=== PATIENT | female | born 1955 | race Caucasian/White ===

== ENCOUNTER → 2016-08-20 | Outpatient (CLI) | payer BC ==
[~2016-08-20] MED LIST: /RANI15TA PO; AMIT8CAP PO; ASPI81TA7 PO; CIPR500T89 PO; CO Q100C10 PO; ESTR2TAB PO; FERR325T3 PO; FISH1000 PO; FLAG500T PO; HYDR12.55 PO; HYDR25TAB PO; LISI-538 PO; LISI5TAB PO; LIVA4TAB PO; MELA5CAP3 PO; MULTCAP PO; POTA75TA PO; PRENTAB29 PO; VESI5TAB PO; VITA100T86 PO; VITA500C24 PO; VITAD1000T PO; VITATAB11 PO
[2016-08-20 11:19] LABS: ALBUMIN 3.6 GM/DL (3.2-5.2); ALKALINE PHOSPHATASE 51 U/L (45-117); ALT/SGPT 23 U/L (12-78); ANION GAP 9 MEQ/L (8-16); AST/SGOT 24 U/L (15-37); BILIRUBIN,TOTAL 0.4 MG/DL (0.2-1.0); BLOOD UREA NITROGEN 19 MG/DL (7-18); CALCIUM LEVEL 9.1 MG/DL (8.5-10.1); CARBON DIOXIDE LEVEL 30 MEQ/L (21-32); CHLORIDE LEVEL 102 MEQ/L (98-107); CHOLESTEROL LEVEL 274 MG/DL (<200); CREATININE FOR GFR 0.66 MG/DL (0.55-1.02); GLOMERULAR FILTRATION RATE > 60.0 (>51); GLUCOSE, FASTING 98 MG/DL (70-105); POTASSIUM SERUM 4.4 MEQ/L (3.5-5.1); SODIUM LEVEL 141 MEQ/L (136-145); TOTAL PROTEIN 6.6 GM/DL (6.4-8.2); TRIGLYCERIDES LEVEL 382 MG/DL (<150)
== END ==
LOC: M LRY 07:59
PROVIDERS: ATTEND Physician Assistant
DX: I10 Essential (primary) hypertension (principal); E78.5 Hyperlipidemia, unspecified

== ENCOUNTER → 2016-12-27 | Outpatient (CLI) | payer BC ==
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
== END ==
LOC: M PAIN 11:20
PROVIDERS: ATTEND Nurse Practitioner Family
DX: G89.29 Other chronic pain (principal); M79.1 Myalgia; M12.88 Other specific arthropathies, not elsewhere classified, other specified site; M50.20 Other cervical disc displacement, unspecified cervical region; I10 Essential (primary) hypertension; E78.00 Pure hypercholesterolemia, unspecified; K21.9 Gastro-esophageal reflux disease without esophagitis; J45.990 Exercise induced bronchospasm; Z88.8 Allergy status to other drugs, medicaments and biological substances; Z79.82 Long term (current) use of aspirin; Z79.899 Other long term (current) drug therapy; Z87.891 Personal history of nicotine dependence

== ENCOUNTER → 2017-01-06 | Outpatient (CLI) | payer BC ==
[~2017-01-06] MED LIST changes: +BUPIVACAINE HCL 0.25% 10 ML VIAL As Ordered ONE; +BUPIVACAINE HCL 0.25% 30 ML VIAL As Ordered ONE; +TRIAMCINOLONE ACETONIDE SUSP 40 MG/ML VIAL (J3301) As Ordered ONE; +diazePAM 5 MG TAB As Ordered ONE; +oxyCODONE 5MG TAB As Ordered ONE
--- NOTE | 2017-01-12 23:20 | ECWPNPC ---
PATIENT NAME: JAMIE FARR : 1955 GENDER: FEMALE VISIT DATE: 01/06/2017 DISCHARGE DATE: 01/06/171529 VISIT LOCKED DATE TIME: PHYSICIAN: PALAK MONTIEL RESOURCE: PALAK MONTIEL REASON FOR APPOINTMENT 1. TPI HISTORY OF PRESENT ILLNESS HISTORY OF PRESENT ILLNESS: PAIN THE PATIENT DESCRIBES THE PAIN... FALL RISK SCREENING: SCREENING :NO FALLS IN THE PAST YEAR CURRENT MEDICATIONS TAKING ANUSOL-HC 2.5 % CREAM 1 APPLICATION TO AFFECTED AREA RECTAL NEEDED TAKING VITAMIN B COMPLEX OTC TABLET 1 TAB(S) P.O. ONCE A DAY, NOTES: 01-06-17529 TAKING MELATONIN 300MCG TABLET 1 TABLET ORALLY ONCE A DAY PRN, NOTES: NONE RECENT TAKING ASPIRIN 81 MG TABLET CHEWABLE 1 TABLET ORALLY ONCE A DAY, NOTES: 01-06-17529 TAKING HYDROCHLOROTHIAZIDE 25 25 MG TABLET 1 TAB ORAL ONCE A DAY, NOTES: 01-06-17529 TAKING LISINOPRIL 20 MG TABLET 1 TABLET ORALLY TWICE A DAY, NOTES: 01-06-17529 TAKING RANITIDINE HCL 150 MG TABLET 1 TABLET ORALLY TWICE A DAY, NOTES: 01-06-17529 TAKING VITAMIN E 400 UNIT CAPSULE 1 ORALLY ONCE A DAY, NOTES: 01-06-17529 TAKING MAGNESIUM 100 MG TABLET 1 TAB(S) P.O. ONCE A DAY, NOTES: 01-05-172099 TAKING VITAMIN D 2000 UNIT TABLET 1 TAB(S) P.O. ONCE A DAY, NOTES: 01-05-172099 TAKING MULTIVITAMIN OTC TABLET 1 TAB(S) P.O. ONCE A DAY, NOTES: 01-06-17529 TAKING ESTRADIOL 1 MG TABLET 1 TABLET ORALLY MON., FRI.,FRI, NOTES: 01-05-17 08 TAKING PRAVASTATIN SODIUM 20 MG TABLET 1 TABLET ORALLY ONCE A DAY, NOTES: 01-05-172099 NOT-TAKING LINZESS 145 MCG CAPSULE 1 CAPSULE ORALLY ONCE A DAY PRN NOT-TAKING COQ-10 200 MG CAPSULE 1 CAPSULE WITH A MEAL ORALLY ONCE A DAY NOT-TAKING FISH OIL 1000 MG CAPSULE CAPSULE ORALLY TWICE A DAY NOT-TAKING AMITIZA 8 MCG CAPSULE 1 CAPSULE ORALLY ONCE A DAY NOT-TAKING CRESTOR 10 MG TABLET 1 TAB(S) P.O. ONCE A DAY DISCONTINUED LIVALO 2 MG TABLET 1 TABLET ORALLY ., AND FRI. MEDICATION LIST REVIEWED AND RECONCILED WITH THE PATIENT PAST MEDICAL HISTORY HIGH BLOOD PRESSURE HIGH CHOLESTEROL ACID REFLUX ASTHMA, EXCERCISE INDUCED KIDNEY STONES, HX OF UPPER GI BLEED 06/15 RECTAL BLEEDING 12/14 INTERNAL /HEMORRHOIDS LIGATED HERNIATED DISC DR EUGENIA REA 2013 (L5 S 1) STRESS INCONTINENCE WITH RUNNING SNEEZING ALLERGIES BACTRIM: RASH: ALLERGY STADOL: HALLUCINATION: SIDE EFFECTS REVIEW OF SYSTEMS CONSTITUTIONAL: ANY CHANGE IN YOUR MEDICAL CONDITION? NO . CHILLS NO . FEVER NO . INFECTION: DO YOU HAVE NEW INFECTIONS? NO . DO YOU HAVE HISTORY OF MRSA? NO . MUSCULOSKELETAL: ANY NEW PATTERNS OF PAIN OR NUMBNESS? NO . GASTROENTEROLOGY: ANY NEW CHANGE IN BOWEL CONTROL? NO . GENITOURINARY: ANY NEW CHANGE IN BLADDER CONTROL? NO . IS THERE A CHANCE YOU COULD BE ? NO . HEMATOLOGY/LYMPH: DO YOU TAKE ANY BLOOD THINNERS? (FOR EXAMPLE- COUMADIN, PLAVIX, AGGRENOX, PLATEL, PRADAXA, OR XARELTO) NO . WHEN WAS YOUR LAST DOSE? DATE: TIME: . NEUROLOGY: HAVE YOU FALLEN IN THE PAST 6 MONTHS? NO . ANY NEW EXTREMITY NUMBNESS OR WEAKNESS? NO . CARDIOLOGY: DO YOU HAVE A PACEMAKER OR DEFIBRILLATOR? NO . RESPIRATORY: HAVE YOU BEEN SICK IN THE PAST WEEK? NO . FEVER NO . FLU LIKE SYMPTOMS? NO . COUGH NO . INTEGUMENTARY: DO YOU HAVE ANY RASHES OR OPEN SORES? NO . ALLERGIC/IMMUNO: ARE YOU ALLERGIC TO SHELLFISH OR IV DYE? NO . ANY NEW ALLERGIES? NO . PSYCHIATRIC: DO YOU HAVE THOUGHTS OF HURTING YOURSELF OR SOMEONE ELSE? NO . ARE YOU ABUSED, NEGLECTED, OR IN AN UNSAFE ENVIRONMENT? NO . ENDOCRINOLOGY: ARE YOU DIABETIC? NO . OTHER: DO YOU NEED ANY PRESCRIPTIONS? NO . IF YES, PLEASE LIST: ____ . ANY NEW PROBLEMS WITH YOUR MEDICATIONS? NO . WHEN DID YOU LAST EAT? 0700 . WHEN DID YOU LAST DRINK? 1100 . WHAT DID YOU LAST DRINK? WATER . NAME OF PERSON DRIVING YOU HOME? LAKESHA FARR . DO YOU HAVE ANY OTHER QUESTIONS OR CONCERNS NO . REVIEWED BY: PROVIDER: . VITAL SIGNS WT 135.0 LBS, HT 61 IN, BMI 25.51 INDEX, BP 122/76 MM HG, HR 70 /MIN, RR 16 /MIN, TEMP 98.9 F, OXYGEN SAT % 98%, NA INITIALS TL 1300, REVIEWED BY: LS. ASSESSMENTS MYALGIA - M79.1 (PRIMARY) PROCEDURES PN TRIGGER POINT INJECTION WITH STEROIDS PRE PROCEDURE DIAGNOSIS 1. MYALGIA 2. PAIN AT RIGHT NECK AREA AND RIGHT SHOULDER AREA POST PROCEDURE DIAGNOSIS 1. MYALGIA 2. PAIN AT RIGHT NECK AREA AND RIGHT SHOULDER AREA PROCEDURE TRIGGER POINT INJECTION AT RIGHT NECK AREA AND RIGHT SHOULDER AREA SURGEON DR. PALAK MONTIEL ALUMINUM FABRICATION SUPERVISOR NONE ANESTHESIA LOCAL PRE PROCEDURE NOTE THE PATIENT HAS A HISTORY OF CHRONIC PAIN AT THE RIGHT NECK AREA AND RIGHT SHOULDER AREA. I EVALUATE THE PATIENT AND REVIEWED THE CHART. THERE IS EVIDENCE OF BANDS OF TISSUE WITH RESTRICTION OF MOVEMENT AND PRESENCE OF TRIGGER POINT AT THE AFFECTED AREA. I WENT OVER THE RISKS, ALTERNATIVES, AND BENEFITS ASSOCIATED WITH THIS PROCEDURE. THE PATIENT WOULD LIKE TO PROCEED AND GIVE CONSENT TO PERFORMED THE PROCEDURE. THE PATIENT DENIES UNEXPLAINABLE WEIGHT LOSS, FEVER, CHILLS, OR NEW CHANGES IN URINARY OR BOWEL CONTROL DESCRIPTION OF PROCEDURE THE PATIENT WAS BROUGHT TO THE PROCEDURE ROOM AND PLACED IN THE SITTING POSITION. THE AREA WAS CLEANED WITH ALCOHOL. THE PROCEDURE WAS DONE USING ASEPTIC STERILE TECHNIQUE. I CHECKED LATERALITY AND THE LEVEL WHERE THE PROCEDURE WAS GOING TO BE PERFORMED WITH THE PATIENT AND THE SUPPORTING STAFF AT THE MOMENT OF THE TIME OUT IN THE PROCEDURE ROOM. USING A 25-GAUGE NEEDLE, TRIGGER POINTS WERE INJECTED AT THE RIGHT NECK AREA AND RIGHT SHOULDER AREA WITH A TOTAL OF 40 ML OF BUPIVACAINE 0.25% AND KENALOG 40 MG. THERE WAS NO EVIDENCE OF BLOOD, PARESTHESIA OR CEREBROSPINAL FLUID DURING THE PROCEDURE. THE PATIENT WAS SENT TO THE RECOVERY ROOM. THE PATIENT WAS MOVING THE EXTREMITIES AND DOING WELL. THERE WAS NO COMPLICATION DURING THE PROCEDURE POST PROCEDURE NOTE THE PATIENT WILL BE SEEN IN A FOLLOW UP IN THE NEXT FEW WEEKS. INSTRUCTIONS WERE GIVEN, QUESTIONS WERE ANSWERED, AND THE PATIENT EXPRESSED UNDERSTANDING AND AGREES WITH THE PLAN. I, JOSÉ MARTINEZ, DOCUMENTED THE ABOVE INFORMATION ACTING A SCRIBE FOR DR. MONTIEL. I HAVE REVIEWED THE ABOVE DOCUMENT, WRITTEN BY JOSÉ MARTINEZ SCRIBFrancoise AND I VERIFY THAT IT IS ACCURATE PROCEDURE CODES 16818 INJ TRIGGER POINT 08/05 [facility] DISPOSITION & COMMUNICATION FOLLOW UP 3 WEEKS ELECTRONICALLY SIGNED BY PALAK MONTIEL MD ON 01/12/2017 AT 07:36 PM EDT DISCLAIMER : THIS IS A VISIT SUMMARY EXTRACTED FROM THE [employer] CHART. IT IS NOT A COPY OF THE [employer] PROGRESS NOTE. TA
== END ==
LOC: M PAIN 12:40
PROVIDERS: ATTEND Anesthesiology
DX: G89.29 Other chronic pain (principal); M79.1 Myalgia; M54.2 Cervicalgia; M25.511 Pain in right shoulder; I10 Essential (primary) hypertension; E78.00 Pure hypercholesterolemia, unspecified; K21.9 Gastro-esophageal reflux disease without esophagitis; J45.990 Exercise induced bronchospasm; Z88.1 Allergy status to other antibiotic agents; Z88.8 Allergy status to other drugs, medicaments and biological substances; Z79.82 Long term (current) use of aspirin; Z79.899 Other long term (current) drug therapy
CPT/HCPCS: 20552; J3301

== ENCOUNTER → 2017-01-31 | Outpatient (CLI) | payer BC ==
[~2017-01-31] MED LIST changes: -BUPIVACAINE HCL 0.25% 10 ML VIAL As Ordered ONE; -BUPIVACAINE HCL 0.25% 30 ML VIAL As Ordered ONE; -TRIAMCINOLONE ACETONIDE SUSP 40 MG/ML VIAL (J3301) As Ordered ONE; -diazePAM 5 MG TAB As Ordered ONE; -oxyCODONE 5MG TAB As Ordered ONE
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
== END ==
LOC: M PAIN 14:20
PROVIDERS: ATTEND Nurse Practitioner Family
DX: G89.29 Other chronic pain (principal); M12.88 Other specific arthropathies, not elsewhere classified, other specified site; M50.20 Other cervical disc displacement, unspecified cervical region; M79.1 Myalgia; I10 Essential (primary) hypertension; E78.00 Pure hypercholesterolemia, unspecified; K21.9 Gastro-esophageal reflux disease without esophagitis; J45.990 Exercise induced bronchospasm; Z88.1 Allergy status to other antibiotic agents; Z88.8 Allergy status to other drugs, medicaments and biological substances; Z79.82 Long term (current) use of aspirin; Z79.899 Other long term (current) drug therapy; Z87.891 Personal history of nicotine dependence

== ENCOUNTER → 2017-03-21 | Outpatient (CLI) | payer BC ==
[2017-03-21 11:50] LABS: BASO % 0.4 % (0.0-1.0); EOS # 0.4 K/mm3 (0.0-0.50); EOS % 5.4 % (0.0-3.0); LARGE UNSTAINED CELL # 0.1 K/mm3 (0.0-0.4); LARGE UNSTAINED CELL % 1.8 % (0.0-4.0); LYMPH # 4.5 K/mm3 (1.5-4.5); MEAN CORPUSCULAR HEMOGLOBIN 32.9 pg (27.0-33.0); MEAN CORPUSCULAR HGB CONC 35.8 g/dl (32.0-36.5); MEAN CORPUSCULAR VOLUME 91.9 fl (80.0-96.0); MONO # 0.4 K/mm3 (0.0-0.8); MONO % 5.2 % (0.0-5.0); NEUTROPHILS # 2.7 K/mm3 (1.8-7.7); NEUTROPHILS % 33.2 % (36.0-66.0); PLATELET COUNT, AUTOMATED 329 k/mm3 (150-450); RED CELL DISTRIBUTION WIDTH 12.6 % (11.5-14.5); WHITE BLOOD COUNT 8.1 K/mm3 (4.0-10.0)
[2017-03-21 11:57] LABS: ALBUMIN 3.6 GM/DL (3.2-5.2); ALKALINE PHOSPHATASE 74 U/L (45-117); ANION GAP 7 MEQ/L (8-16); BILIRUBIN,TOTAL 0.4 MG/DL (0.2-1.0); BLOOD UREA NITROGEN 16 MG/DL (7-18); CALCIUM LEVEL 8.9 MG/DL (8.8-10.2); CARBON DIOXIDE LEVEL 31 MEQ/L (21-32); CHLORIDE LEVEL 104 MEQ/L (98-107); CHOLESTEROL LEVEL 294 MG/DL (<200); CREATININE FOR GFR 0.77 MG/DL (0.55-1.02); GLOMERULAR FILTRATION RATE > 60.0 (>45); POTASSIUM SERUM 4.6 MEQ/L (3.5-5.1); SODIUM LEVEL 142 MEQ/L (136-145)
[2017-03-21 12:13] LABS: TRIGLYCERIDES LEVEL 1751 MG/DL (<150)
[2017-03-21 12:37] LABS: ALT/SGPT 39 U/L (12-78); AST/SGOT 29 U/L (15-37); GLUCOSE, FASTING 114 MG/DL (80-110); TOTAL PROTEIN 6.6 GM/DL (6.4-8.2)
== END ==
LOC: M LRY 08:12
PROVIDERS: ATTEND Physician Assistant
DX: D64.9 Anemia, unspecified (principal); E78.5 Hyperlipidemia, unspecified; E55.9 Vitamin D deficiency, unspecified; R31.9 Hematuria, unspecified; R00.2 Palpitations; I10 Essential (primary) hypertension

== ENCOUNTER → 2017-03-31 | Outpatient (CLI) | payer BC ==
--- NOTE | 2017-03-31 14:36 | REPMRS ---
Patient History The patient states she had a clinical breast exam in Patient is postmenopausal. No known family history of cancer. Benign stereotatic breast biopsy of the right breast, 2010. Took unspecified hormones for 6 years. Digital Woman Screen Mammo: March 31, 2017 - Exam #: [id number] Bilateral CC and MLO view(s) were taken. Technologist: Sadaf Smith, Technologist Prior study comparison: January 26, 2016, digital woman screen mammo performed at [facility]. January 16, 2015, digital woman screen mammo performed at [facility]. January 14, 2014, digital woman screen mammo performed at [facility]. FINDINGS: There are scattered fibroglandular densities. There has been no change in the appearance of the mammogram from the prior studies. There is a mild amount of scattered fibroglandular density which is fairly symmetric. There is no interval development of dominant mass, architectural distortion, or clustered microcalcification suggestive of malignancy. ASSESSMENT: BI-RADS/ACR category 1 mammogram. Negative. Recommendation Routine screening mammogram in 1 year (for women over age 40). This mammogram was interpreted with the aid of an FDA-approved computer-aided dectection system. Electronically Signed By: Parrish Poole MD 03/31/17 [id number]
== END ==
LOC: M WHC 12:58
PROVIDERS: ATTEND Nurse Practitioner Family
DX: Z12.31 Encounter for screening mammogram for malignant neoplasm of breast (principal)

== ENCOUNTER → 2017-04-28 | Outpatient (CLI) | payer BC ==
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
== END ==
LOC: M PAIN 11:30
PROVIDERS: ATTEND Nurse Practitioner Family
DX: G89.29 Other chronic pain (principal); M12.88 Other specific arthropathies, not elsewhere classified, other specified site; M50.20 Other cervical disc displacement, unspecified cervical region; M79.1 Myalgia; I10 Essential (primary) hypertension; E78.00 Pure hypercholesterolemia, unspecified; K21.9 Gastro-esophageal reflux disease without esophagitis; F32.9 Major depressive disorder, single episode, unspecified; Z87.891 Personal history of nicotine dependence; Z88.1 Allergy status to other antibiotic agents; Z88.8 Allergy status to other drugs, medicaments and biological substances; Z79.82 Long term (current) use of aspirin; Z79.899 Other long term (current) drug therapy

== ENCOUNTER → 2017-05-07 | Outpatient (CLI) | payer BC ==
[~2017-05-07] MED LIST changes: +BUPIVACAINE HCL 0.25% 10 ML VIAL As Ordered ONE; +BUPIVACAINE HCL 0.25% 30 ML VIAL As Ordered ONE; +TRIAMCINOLONE ACETONIDE SUSP 40 MG/ML VIAL (J3301) As Ordered ONE; +diazePAM 5 MG TAB As Ordered ONE; +oxyCODONE 5MG TAB As Ordered ONE
--- NOTE | 2017-05-13 00:04 | ECWPNPC ---
PATIENT NAME: JAMIE FARR : 1955 GENDER: FEMALE VISIT DATE: 05/07/2017 DISCHARGE DATE: 05/07/17 1633 VISIT LOCKED DATE TIME: PHYSICIAN: PALAK MONTIEL RESOURCE: PALAK MONTIEL REASON FOR APPOINTMENT 1. NECK/SHOULDERS HISTORY OF PRESENT ILLNESS HISTORY OF PRESENT ILLNESS: PAIN THE PATIENT DESCRIBES THE PAIN... FALL RISK SCREENING: SCREENING :NO FALLS IN THE PAST YEAR CURRENT MEDICATIONS TAKING ANUSOL-HC 2.5 % CREAM 1 APPLICATION TO AFFECTED AREA RECTAL NEEDED, NOTES: AWHILE TAKING VITAMIN B COMPLEX OTC TABLET 1 TAB(S) P.O. ONCE A DAY, NOTES: 52905/07/17 TAKING MELATONIN 300MCG TABLET 1 TABLET ORALLY ONCE A DAY PRN, NOTES: AWHILE TAKING ASPIRIN 81 MG TABLET CHEWABLE 1 TABLET ORALLY ONCE A DAY, NOTES: 52905/07/17 TAKING HYDROCHLOROTHIAZIDE 25 25 MG TABLET 1 TAB ORAL ONCE A DAY, NOTES: 52905/07/17 TAKING LISINOPRIL 20 MG TABLET 1 TABLET ORALLY TWICE A DAY, NOTES: 52905/07/17 TAKING RANITIDINE HCL 150 MG TABLET 1 TABLET ORALLY TWICE A DAY, NOTES: 52905/07/17 TAKING VITAMIN E 400 UNIT CAPSULE 1 ORALLY ONCE A DAY, NOTES: 52905/07/17 TAKING MAGNESIUM 100 MG TABLET 1 TAB(S) P.O. ONCE A DAY, NOTES: 9PM 05/06/17 TAKING VITAMIN D 2000 UNIT TABLET 1 TAB(S) P.O. ONCE A DAY, NOTES: 52905/07/17 TAKING MULTIVITAMIN OTC TABLET 1 TAB(S) P.O. ONCE A DAY, NOTES: 52905/07/17 TAKING CRESTOR 10 MG TABLET 1 TAB(S) P.O. ONCE A DAY, NOTES: 9PM 05/06 TAKING LEXAPRO 5 MG TABLET 1 TAB ORALLY ONCE A DAY, NOTES: 52905/07/17 MEDICATION LIST REVIEWED AND RECONCILED WITH THE PATIENT PAST MEDICAL HISTORY HIGH BLOOD PRESSURE HIGH CHOLESTEROL ACID REFLUX ASTHMA, EXCERCISE INDUCED KIDNEY STONES, HX OF UPPER GI BLEED 06/15 RECTAL BLEEDING 12/14 INTERNAL /HEMORRHOIDS LIGATED HERNIATED DISC DR BELLO SCIATICA 2013 (L5 S 1) STRESS INCONTINENCE WITH RUNNING SNEEZING DEPRESION ALLERGIES BACTRIM: RASH: ALLERGY STADOL: HALLUCINATION: SIDE EFFECTS SURGICAL HISTORY TONSILLECTOMY AMBER CARPAL TUNNEL RELEASE 2009 LAVH AND BSO FOR BENIGN CYSTADENOMA FIBROID UTERUS AND ENDOMETRIOSIS 2009 HEMORRHOIDECTOMY X2 2010 BREAST BIOPSY, NEG, EWBC 12/[address] MENDOZA 2013 HOSPITALIZATION/MAJOR DIAGNOSTIC PROCEDURE UPPER GI BLEED 06/15 REVIEW OF SYSTEMS REVIEWED BY: PROVIDER: . CONSTITUTIONAL: ANY CHANGE IN YOUR MEDICAL CONDITION? NO . CHILLS NO . FEVER NO . INFECTION: DO YOU HAVE NEW INFECTIONS? NO . DO YOU HAVE HISTORY OF MRSA? NO . MUSCULOSKELETAL: ANY NEW PATTERNS OF PAIN OR NUMBNESS? NO . GASTROENTEROLOGY: ANY NEW CHANGE IN BOWEL CONTROL? NO . GENITOURINARY: ANY NEW CHANGE IN BLADDER CONTROL? NO . IS THERE A CHANCE YOU COULD BE ? NO . HEMATOLOGY/LYMPH: DO YOU TAKE ANY BLOOD THINNERS? (FOR EXAMPLE- COUMADIN, PLAVIX, AGGRENOX, PLATEL, PRADAXA, OR XARELTO) NO . WHEN WAS YOUR LAST DOSE? DATE: TIME: . NEUROLOGY: HAVE YOU FALLEN IN THE PAST 6 MONTHS? NO . ANY NEW EXTREMITY NUMBNESS OR WEAKNESS? NO . CARDIOLOGY: DO YOU HAVE A PACEMAKER OR DEFIBRILLATOR? NO . RESPIRATORY: HAVE YOU BEEN SICK IN THE PAST WEEK? NO . FEVER NO . FLU LIKE SYMPTOMS? NO . COUGH NO . INTEGUMENTARY: DO YOU HAVE ANY RASHES OR OPEN SORES? NO . ALLERGIC/IMMUNO: ARE YOU ALLERGIC TO SHELLFISH OR IV DYE? NO . ANY NEW ALLERGIES? NO . PSYCHIATRIC: DO YOU HAVE THOUGHTS OF HURTING YOURSELF OR SOMEONE ELSE? NO . ARE YOU ABUSED, NEGLECTED, OR IN AN UNSAFE ENVIRONMENT? NO . ENDOCRINOLOGY: ARE YOU DIABETIC? NO . OTHER: DO YOU NEED ANY PRESCRIPTIONS? NO . IF YES, PLEASE LIST: ____ . ANY NEW PROBLEMS WITH YOUR MEDICATIONS? NO . WHEN DID YOU LAST EAT? 0800 AM . WHEN DID YOU LAST DRINK? 12PM . WHAT DID YOU LAST DRINK? WATER . NAME OF PERSON DRIVING YOU HOME? LAKESHA . DO YOU HAVE ANY OTHER QUESTIONS OR CONCERNS NO . VITAL SIGNS WT 133.8 LBS, HT 61 IN, BMI 25.28 INDEX, BP 130/76 MM HG, HR 66 /MIN, RR 16 /MIN, TEMP 98.7 F, OXYGEN SAT % 100%, NA INITIALS SC 14:14, REVIEWED BY: NL. ASSESSMENTS MYALGIA - M79.1 (PRIMARY) PROCEDURES PN TRIGGER POINT INJECTION WITH STEROIDS PRE PROCEDURE DIAGNOSIS 1. MYALGIA 2. PAIN AT RIGHT NECK AREA, RIGHT SHOULDER AREA, AND RIGHT THORACIC AREA POST PROCEDURE DIAGNOSIS 1. MYALGIA 2. PAIN AT RIGHT NECK AREA, RIGHT SHOULDER AREA, AND RIGHT THORACIC AREA PROCEDURE TRIGGER POINT INJECTION AT RIGHT NECK AREA, RIGHT SHOULDER AREA, AND RIGHT THORACIC AREA SURGEON DR. PALAK MONTIEL CHROME WORKER NONE ANESTHESIA LOCAL PRE PROCEDURE NOTE THE PATIENT HAS A HISTORY OF CHRONIC PAIN AT THE RIGHT NECK AREA, RIGHT SHOULDER AREA, AND RIGHT THORACIC AREA. I EVALUATE THE PATIENT AND REVIEWED THE CHART. THERE IS EVIDENCE OF BANDS OF TISSUE WITH RESTRICTION OF MOVEMENT AND PRESENCE OF TRIGGER POINT AT THE AFFECTED AREA. I WENT OVER THE RISKS, ALTERNATIVES, AND BENEFITS ASSOCIATED WITH THIS PROCEDURE. THE PATIENT WOULD LIKE TO PROCEED AND GIVE CONSENT TO PERFORMED THE PROCEDURE. THE PATIENT DENIES UNEXPLAINABLE WEIGHT LOSS, FEVER, CHILLS, OR NEW CHANGES IN URINARY OR BOWEL CONTROL DESCRIPTION OF PROCEDURE THE PATIENT WAS BROUGHT TO THE PROCEDURE ROOM AND PLACED IN THE SITTING POSITION. THE AREA WAS CLEANED WITH ALCOHOL. THE PROCEDURE WAS DONE USING ASEPTIC STERILE TECHNIQUE. I CHECKED LATERALITY AND THE LEVEL WHERE THE PROCEDURE WAS GOING TO BE PERFORMED WITH THE PATIENT AND THE SUPPORTING STAFF AT THE MOMENT OF THE TIME OUT IN THE PROCEDURE ROOM. USING A 25-GAUGE NEEDLE, TRIGGER POINTS WERE INJECTED AT THE RIGHT NECK AREA, RIGHT SHOULDER AREA, AND RIGHT THORACIC AREA WITH A TOTAL OF 40 ML OF BUPIVACAINE 0.25% AND KENALOG 40 MG. THERE WAS NO EVIDENCE OF BLOOD, PARESTHESIA OR CEREBROSPINAL FLUID DURING THE PROCEDURE. THE PATIENT WAS SENT TO THE RECOVERY ROOM. THE PATIENT WAS MOVING THE EXTREMITIES AND DOING WELL. THERE WAS NO COMPLICATION DURING THE PROCEDURE POST PROCEDURE NOTE THE PATIENT WILL BE SEEN IN A FOLLOW UP IN THE NEXT FEW WEEKS. INSTRUCTIONS WERE GIVEN, QUESTIONS WERE ANSWERED, AND THE PATIENT EXPRESSED UNDERSTANDING AND AGREES WITH THE PLAN. I, FALLON CASH, DOCUMENTED THE ABOVE INFORMATION ACTING A SCRIBE FOR DR. MONTIEL. I HAVE REVIEWED THE ABOVE DOCUMENT, WRITTEN BY FALLON HONG AND I VERIFY THAT IT IS ACCURATE PROCEDURE CODES 82274 INJECT TRIGGER POINTS 3/> DISPOSITION & COMMUNICATION FOLLOW UP 3 WEEKS ELECTRONICALLY SIGNED BY PALAK MONTIEL MD ON 05/12/2017 AT 03:16 PM EDT DISCLAIMER : THIS IS A VISIT SUMMARY EXTRACTED FROM THE [employer] CHART. IT IS NOT A COPY OF THE [employer] PROGRESS NOTE. TA
== END ==
LOC: M PAIN 14:45
PROVIDERS: ATTEND Anesthesiology
DX: G89.29 Other chronic pain (principal); M25.511 Pain in right shoulder; M54.2 Cervicalgia; M54.6 Pain in thoracic spine; M79.1 Myalgia; I10 Essential (primary) hypertension; E78.00 Pure hypercholesterolemia, unspecified; K21.9 Gastro-esophageal reflux disease without esophagitis; F32.9 Major depressive disorder, single episode, unspecified; Z79.52 Long term (current) use of systemic steroids; Z79.899 Other long term (current) drug therapy
CPT/HCPCS: 20553; J3301

== ENCOUNTER → 2017-06-20 | Outpatient (CLI) | payer BC ==
[~2017-06-20] MED LIST changes: -BUPIVACAINE HCL 0.25% 10 ML VIAL As Ordered ONE; -BUPIVACAINE HCL 0.25% 30 ML VIAL As Ordered ONE; -TRIAMCINOLONE ACETONIDE SUSP 40 MG/ML VIAL (J3301) As Ordered ONE; -diazePAM 5 MG TAB As Ordered ONE; -oxyCODONE 5MG TAB As Ordered ONE
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
== END ==
LOC: M PAIN 13:15
PROVIDERS: ATTEND Nurse Practitioner Family
DX: G89.29 Other chronic pain (principal); M79.1 Myalgia; M12.88 Other specific arthropathies, not elsewhere classified, other specified site; M50.20 Other cervical disc displacement, unspecified cervical region; E78.00 Pure hypercholesterolemia, unspecified; K21.9 Gastro-esophageal reflux disease without esophagitis; J45.909 Unspecified asthma, uncomplicated; Z87.442 Personal history of urinary calculi; F32.9 Major depressive disorder, single episode, unspecified; Z79.82 Long term (current) use of aspirin; Z79.899 Other long term (current) drug therapy; Z87.891 Personal history of nicotine dependence; Z88.1 Allergy status to other antibiotic agents; Z88.8 Allergy status to other drugs, medicaments and biological substances

== ENCOUNTER → 2017-07-16 | Outpatient (CLI) | payer BC ==
[~2017-07-16] MED LIST changes: +BUPIVACAINE HCL 0.25% 10 ML VIAL As Ordered ONE; +BUPIVACAINE HCL 0.25% 30 ML VIAL As Ordered ONE; +TRIAMCINOLONE ACETONIDE SUSP 40 MG/ML VIAL (J3301) As Ordered ONE; +diazePAM 5 MG TAB As Ordered ONE; +oxyCODONE 5MG TAB As Ordered ONE
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
== END ==
LOC: M PAIN 15:15
PROVIDERS: ATTEND Anesthesiology
DX: G89.29 Other chronic pain (principal); M79.1 Myalgia; I10 Essential (primary) hypertension; E78.00 Pure hypercholesterolemia, unspecified; Z79.82 Long term (current) use of aspirin; Z79.899 Other long term (current) drug therapy; Z88.1 Allergy status to other antibiotic agents; Z88.8 Allergy status to other drugs, medicaments and biological substances
CPT/HCPCS: 20552; J3301

== ENCOUNTER → 2017-07-21 | Outpatient (CLI) | payer BC ==
[~2017-07-21] MED LIST changes: -BUPIVACAINE HCL 0.25% 10 ML VIAL As Ordered ONE; -BUPIVACAINE HCL 0.25% 30 ML VIAL As Ordered ONE; -TRIAMCINOLONE ACETONIDE SUSP 40 MG/ML VIAL (J3301) As Ordered ONE; -diazePAM 5 MG TAB As Ordered ONE; -oxyCODONE 5MG TAB As Ordered ONE
[2017-07-21 12:39] LABS: ALBUMIN/GLOBULIN RATIO 1.25 (1.00-1.93); ALKALINE PHOSPHATASE 77 U/L (45-117); ALT/SGPT 35 U/L (12-78); AST/SGOT 22 U/L (7-37); BILIRUBIN,DIRECT < 0.1 MG/DL (0.0-0.2); BILIRUBIN,TOTAL 0.4 MG/DL (0.2-1.0); CHOLESTEROL LEVEL 189 MG/DL (<200); TOTAL PROTEIN 7.2 GM/DL (6.4-8.2); TRIGLYCERIDES LEVEL 206 MG/DL (<150)
== END ==
LOC: M LRY 07:53
PROVIDERS: ATTEND Internal Medicine Cardiovascular Disease
DX: E78.2 Mixed hyperlipidemia (principal)

== ENCOUNTER → 2017-08-11 | Outpatient (CLI) | payer BC | LOC: M PAIN 14:45 | DX: M50.20 Other cervical disc displacement, unspecified cervical region (principal); M12.88 Other specific arthropathies, not elsewhere classified, other specified site; M79.1 Myalgia; I10 Essential (primary) hypertension; E78.00 Pure hypercholesterolemia, unspecified; J45.990 Exercise induced bronchospasm; F32.9 Major depressive disorder, single episode, unspecified; Z88.1 Allergy status to other antibiotic agents; Z88.8 Allergy status to other drugs, medicaments and biological substances; Z79.82 Long term (current) use of aspirin; Z79.899 Other long term (current) drug therapy; Z87.891 Personal history of nicotine dependence | CPT/HCPCS: G0463 ==

== ENCOUNTER → 2017-10-24 | Outpatient (CLI) | payer BC | LOC: M PAIN 13:00 | DX: M12.88 Other specific arthropathies, not elsewhere classified, other specified site (principal); M50.20 Other cervical disc displacement, unspecified cervical region; M79.1 Myalgia; I10 Essential (primary) hypertension; E78.00 Pure hypercholesterolemia, unspecified; J45.990 Exercise induced bronchospasm; F32.9 Major depressive disorder, single episode, unspecified; K44.9 Diaphragmatic hernia without obstruction or gangrene; Z79.82 Long term (current) use of aspirin; Z79.899 Other long term (current) drug therapy; Z88.1 Allergy status to other antibiotic agents; Z88.8 Allergy status to other drugs, medicaments and biological substances; Z87.891 Personal history of nicotine dependence | CPT/HCPCS: G0463 ==

== ENCOUNTER → 2017-11-03 | Outpatient (CLI) | payer BC ==
[~2017-11-03] MED LIST changes: -/RANI15TA PO; -AMIT8CAP PO; -ASPI81TA7 PO; +BUPIVACAINE HCL 0.25% 10 ML VIAL As Ordered; +BUPIVACAINE HCL 0.25% 30 ML VIAL As Ordered; -CIPR500T89 PO; -CO Q100C10 PO; -ESTR2TAB PO; -FERR325T3 PO; -FISH1000 PO; -FLAG500T PO; -HYDR12.55 PO; -HYDR25TAB PO; -LISI-538 PO; -LISI5TAB PO; -LIVA4TAB PO; -MELA5CAP3 PO; -MULTCAP PO; -POTA75TA PO; -PRENTAB29 PO; +TRIAMCINOLONE ACETONIDE SUSP 40 MG/ML VIAL (J3301) As Ordered; -VESI5TAB PO; -VITA100T86 PO; -VITA500C24 PO; -VITAD1000T PO; -VITATAB11 PO; +diazePAM 5 MG TAB As Ordered; +oxyCODONE 5MG TAB As Ordered
== END ==
LOC: M PAIN 15:30
DX: G89.29 Other chronic pain (principal); M79.1 Myalgia; M54.2 Cervicalgia; M25.511 Pain in right shoulder; M25.512 Pain in left shoulder; M54.6 Pain in thoracic spine; I10 Essential (primary) hypertension; E78.00 Pure hypercholesterolemia, unspecified; J45.909 Unspecified asthma, uncomplicated; F32.9 Major depressive disorder, single episode, unspecified; K44.9 Diaphragmatic hernia without obstruction or gangrene; Z79.82 Long term (current) use of aspirin; Z79.899 Other long term (current) drug therapy; Z88.1 Allergy status to other antibiotic agents; Z88.8 Allergy status to other drugs, medicaments and biological substances; Z87.891 Personal history of nicotine dependence
CPT/HCPCS: J3301

== ENCOUNTER → 2017-11-17 | Outpatient (CLI) | payer BC | LOC: M PAIN 14:30 | DX: M79.1 Myalgia (principal); M12.88 Other specific arthropathies, not elsewhere classified, other specified site; M50.20 Other cervical disc displacement, unspecified cervical region; I10 Essential (primary) hypertension; E78.00 Pure hypercholesterolemia, unspecified; J45.909 Unspecified asthma, uncomplicated; F32.9 Major depressive disorder, single episode, unspecified; K44.9 Diaphragmatic hernia without obstruction or gangrene; Z79.82 Long term (current) use of aspirin; Z79.899 Other long term (current) drug therapy; Z88.1 Allergy status to other antibiotic agents; Z88.8 Allergy status to other drugs, medicaments and biological substances; Z87.891 Personal history of nicotine dependence | CPT/HCPCS: G0463 ==

== ENCOUNTER → 2017-12-08 | Outpatient (CLI) | payer BC ==
[2017-12-08 19:57] LABS: BASO % 0.5 % (0.0-1.0); EOS # 0.1 10^3/uL (0.0-0.50); EOS % 1.4 % (0.0-3.0); HEMATOCRIT 33.7 % (36.0-47.0); HEMOGLOBIN 11.2 g/dl (12.0-15.5); IMMATURE GRANULOCYTE % 0.3 % (0-3.0); LYMPH # 3.1 10^3/uL (1.5-4.5); MEAN CORPUSCULAR HEMOGLOBIN 30.6 pg (27.0-33.0); MEAN CORPUSCULAR HGB CONC 33.2 g/dl (32.0-36.5); MEAN CORPUSCULAR VOLUME 92.1 fl (80.0-96.0); MONO # 0.5 10^3/uL (0.0-0.8); NEUTROPHILS # 2.7 10^3/uL (1.8-7.7); NEUTROPHILS % 41.8 % (36.0-66.0); PLATELET COUNT, AUTOMATED 399 10^3/uL (150-450); RED BLOOD COUNT 3.66 10^6/uL (4.00-5.40); RED CELL DISTRIBUTION WIDTH 12.7 % (11.5-14.5); WHITE BLOOD COUNT 6.5 10^3/uL (4.0-10.0)
[2017-12-08 20:04] LABS: ANION GAP 6 MEQ/L (8-16); BLOOD UREA NITROGEN 20 MG/DL (7-18); CARBON DIOXIDE LEVEL 30 MEQ/L (21-32); CHLORIDE LEVEL 103 MEQ/L (98-107); CREATININE FOR GFR 0.78 MG/DL (0.55-1.30); GLOMERULAR FILTRATION RATE > 60.0 (>45); GLUCOSE, FASTING 82 MG/DL (70-100); POTASSIUM SERUM 4.4 MEQ/L (3.5-5.1); SODIUM LEVEL 139 MEQ/L (136-145)
[2017-12-08 20:17] LABS: PARTIAL THROMBOPLASTIN TIME 53.6 SECONDS (26.8-37.9)
[2017-12-08 20:42] LABS: INR 0.82; PROTHROMBIN TIME 11.3 SECONDS (12.4-14.5)
== END ==
LOC: M LRY 15:49
DX: I70.212 Atherosclerosis of native arteries of extremities with intermittent claudication, left leg (principal)
CPT/HCPCS: 80048

== ENCOUNTER → 2018-01-05 | Outpatient (CLI) | payer BC ==
[2018-01-05 12:14] LABS: CHOLESTEROL LEVEL 223 MG/DL (<200); CHOLESTEROL RISK RATIO 4.551 (<5); HDL CHOLESTEROL 49 MG/DL (>40); NON-HDL-C 174 MG/DL; TRIGLYCERIDES LEVEL 360 MG/DL (<150)
== END ==
LOC: M LRY 08:18
DX: E78.2 Mixed hyperlipidemia (principal)
CPT/HCPCS: 80061

== ENCOUNTER → 2018-02-06 | Outpatient (CLI) | payer BC | LOC: M PAIN 14:30 | DX: M79.1 Myalgia (principal); M12.88 Other specific arthropathies, not elsewhere classified, other specified site; M50.20 Other cervical disc displacement, unspecified cervical region; I10 Essential (primary) hypertension; E78.00 Pure hypercholesterolemia, unspecified; J45.909 Unspecified asthma, uncomplicated; F32.9 Major depressive disorder, single episode, unspecified; K44.9 Diaphragmatic hernia without obstruction or gangrene; Z79.82 Long term (current) use of aspirin; Z79.899 Other long term (current) drug therapy; Z88.1 Allergy status to other antibiotic agents; Z88.8 Allergy status to other drugs, medicaments and biological substances; Z87.891 Personal history of nicotine dependence | CPT/HCPCS: G0463 ==

== ENCOUNTER → 2018-07-06 | Outpatient (CLI) | payer BC | LOC: M WHC 14:06 | DX: Z12.31 Encounter for screening mammogram for malignant neoplasm of breast (principal) | CPT/HCPCS: 77067 ==

== ENCOUNTER → 2018-07-13 | Outpatient (CLI) | payer BC ==
[2018-07-13 10:20] LABS: BASO % 0.5 % (0.0-1.0); EOS # 0.3 10^3/uL (0.0-0.50); HEMATOCRIT 39.1 % (36.0-47.0); HEMOGLOBIN 12.8 g/dl (12.0-15.5); IMMATURE GRANULOCYTE % 0.3 % (0-3.0); LYMPH # 3.1 10^3/uL (1.5-4.5); MEAN CORPUSCULAR HEMOGLOBIN 29.4 pg (27.0-33.0); MEAN CORPUSCULAR HGB CONC 32.7 g/dl (32.0-36.5); MEAN CORPUSCULAR VOLUME 89.9 fl (80.0-96.0); MONO # 0.5 10^3/uL (0.0-0.8); MONO % 7.6 % (0.0-5.0); NEUTROPHILS # 2.4 10^3/uL (1.8-7.7); NEUTROPHILS % 37.6 % (36.0-66.0); PLATELET COUNT, AUTOMATED 308 10^3/uL (150-450); RED BLOOD COUNT 4.35 10^6/uL (4.00-5.40); RED CELL DISTRIBUTION WIDTH 12.7 % (11.5-14.5); WHITE BLOOD COUNT 6.3 10^3/uL (4.0-10.0)
[2018-07-13 10:49] LABS: ALBUMIN 3.6 GM/DL (3.2-5.2); ALBUMIN/GLOBULIN RATIO 1.16 (1.00-1.93); ALKALINE PHOSPHATASE 86 U/L (45-117); ALT/SGPT 41 U/L (12-78); ANION GAP 7 MEQ/L (8-16); AST/SGOT 36 U/L (7-37); BILIRUBIN,TOTAL 0.3 MG/DL (0.2-1.0); BLOOD UREA NITROGEN 17 MG/DL (7-18); CALCIUM LEVEL 8.6 MG/DL (8.8-10.2); CARBON DIOXIDE LEVEL 31 MEQ/L (21-32); CHLORIDE LEVEL 104 MEQ/L (98-107); CHOLESTEROL LEVEL 186 MG/DL (<200); CHOLESTEROL RISK RATIO 5.027 (<5); CREATININE FOR GFR 0.73 MG/DL (0.55-1.30); GLOMERULAR FILTRATION RATE > 60.0 (>45); GLUCOSE, FASTING 118 MG/DL (70-100); HDL CHOLESTEROL 37 MG/DL (>40); NON-HDL-C 149 MG/DL; POTASSIUM SERUM 4.4 MEQ/L (3.5-5.1); SODIUM LEVEL 142 MEQ/L (136-145); TOTAL PROTEIN 6.7 GM/DL (6.4-8.2); TRIGLYCERIDES LEVEL 569 MG/DL (<150)
== END ==
LOC: M LRY 07:40
DX: E78.2 Mixed hyperlipidemia (principal)
CPT/HCPCS: 80053

== ENCOUNTER → 2018-12-04 | Outpatient (CLI) | payer BC ==
[~2018-12-04] MED LIST changes: +AMIT8CAP PO; +ASPI81TA7 PO; -BUPIVACAINE HCL 0.25% 10 ML VIAL As Ordered; -BUPIVACAINE HCL 0.25% 30 ML VIAL As Ordered; +CIPR500T89 PO; +CO Q100C10 PO; +ESTR2TAB PO; +FERR325T3 PO; +FISH1000 PO; +FLAG500T PO; +HYDR-2541 PO; +HYDR12.55 PO; +LISI-538 PO; +LISI5TAB PO; +LIVA4TAB PO; +MELA5CAP3 PO; +MULTCAP PO; +POTA75TA PO; +PRENTAB29 PO; +RANI1TAB17 PO; -TRIAMCINOLONE ACETONIDE SUSP 40 MG/ML VIAL (J3301) As Ordered; +VESI5TAB PO; +VITA100T86 PO; +VITA500C24 PO; +VITAD1000T PO; +VITATAB11 PO; -diazePAM 5 MG TAB As Ordered; -oxyCODONE 5MG TAB As Ordered
[2018-12-04 11:42] LABS: APPEARANCE, URINE HAZY (CLEAR); BACTERIA, URINE AUTO NEGATIVE (NEGATIVE); BILIRUBIN, URINE AUTO NEGATIVE (NEGATIVE); BLOOD, URINE BLOOD NEGATIVE (NEGATIVE); COLOR, URINE YELLOW (YELLOW); GLUCOSE, URINE (UA) AUTO NEGATIVE (NEGATIVE); KETONE, URINE AUTO NEGATIVE (NEGATIVE); LEUKOCYTE ESTERASE, URINE AUTO NEGATIVE (NEGATIVE); MUCUS, URINE SMALL (NEGATIVE); NITRITE, URINE AUTO NEGATIVE (NEGATIVE); PROTEIN, URINE AUTO NEGATIVE (NEGATIVE); RBC, URINE AUTO 2 /HPF (0-3); SPECIFIC GRAVITY URINE AUTO 1.019 (1.002-1.035); SQUAMOUS EPITHELIAL CELL UR AU 1 /HPF (0-6); UROBILINOGEN, URINE AUTO 0.2 mg/dL (0.0-2.0); WBC, URINE AUTO 1 /HPF (0-3)
[2018-12-04 11:43] LABS: BASO % 0.3 % (0.0-1.0); EOS # 0.3 10^3/uL (0.0-0.50); HEMOGLOBIN 12.2 g/dl (12.0-15.5); LYMPH # 3.8 10^3/uL (1.5-4.5); LYMPH % 54.5 % (24.0-44.0); MEAN CORPUSCULAR HEMOGLOBIN 29.5 pg (27.0-33.0); MEAN CORPUSCULAR HGB CONC 32.1 g/dl (32.0-36.5); MEAN CORPUSCULAR VOLUME 91.8 fl (80.0-96.0); MONO # 0.5 10^3/uL (0.0-0.8); MONO % 7.6 % (0.0-5.0); NEUTROPHILS # 2.3 10^3/uL (1.8-7.7); NEUTROPHILS % 33.2 % (36.0-66.0); PLATELET COUNT, AUTOMATED 388 10^3/uL (150-450); RED BLOOD COUNT 4.14 10^6/uL (4.00-5.40)
[2018-12-04 12:40] LABS: ALBUMIN 3.9 GM/DL (3.2-5.2); ALT/SGPT 32 U/L (12-78); BILIRUBIN,TOTAL 0.3 MG/DL (0.2-1.0); BLOOD UREA NITROGEN 28 MG/DL (7-18); CALCIUM LEVEL 9.1 MG/DL (8.8-10.2); CARBON DIOXIDE LEVEL 30 MEQ/L (21-32); CHLORIDE LEVEL 106 MEQ/L (98-107); CHOLESTEROL LEVEL 159 MG/DL (<200); CREATININE FOR GFR 0.86 MG/DL (0.55-1.30); GLOMERULAR FILTRATION RATE > 60.0 (>45); GLUCOSE, FASTING 108 MG/DL (70-100); HDL CHOLESTEROL 53 MG/DL (>40); LDL CHOLESTEROL 82 MG/DL (<100); NON-HDL-C 106 MG/DL; POTASSIUM SERUM 4.4 MEQ/L (3.5-5.1); SODIUM LEVEL 140 MEQ/L (136-145); TRIGLYCERIDES LEVEL 121 MG/DL (<150)
== END ==
LOC: M LRY 07:59
PROVIDERS: ATTEND Physician Assistant
DX: D64.9 Anemia, unspecified (principal); I10 Essential (primary) hypertension; E55.9 Vitamin D deficiency, unspecified; N20.0 Calculus of kidney; E78.5 Hyperlipidemia, unspecified

== ENCOUNTER → 2019-07-30 | Outpatient (CLI) | payer BC ==
[2019-07-30 11:53] LABS: BASO % 0.4 % (0.0-1.0); EOS # 0.3 10^3/uL (0.0-0.5); EOS % 3.6 % (0.0-3.0); LYMPH # 4.3 10^3/uL (1.5-5.0); LYMPH % 56.3 % (24.0-44.0); MEAN CORPUSCULAR HEMOGLOBIN 29.9 pg (27.0-33.0); MEAN CORPUSCULAR HGB CONC 32.4 g/dl (32.0-36.5); MEAN CORPUSCULAR VOLUME 92.3 fl (80.0-96.0); MONO # 0.5 10^3/uL (0.0-0.8); MONO % 7.1 % (0.0-5.0); NEUTROPHILS # 2.4 10^3/uL (1.5-8.5); NEUTROPHILS % 32.3 % (36.0-66.0); PLATELET COUNT, AUTOMATED 358 10^3/uL (150-450); RED BLOOD COUNT 4.01 10^6/uL (4.00-5.40); WHITE BLOOD COUNT 7.6 10^3/uL (4.0-10.0)
[2019-07-30 11:59] LABS: ALBUMIN 3.8 GM/DL (3.2-5.2); ALT/SGPT 29 U/L (12-78); BILIRUBIN,TOTAL 0.3 MG/DL (0.2-1.0); BLOOD UREA NITROGEN 23 MG/DL (7-18); CALCIUM LEVEL 9.5 MG/DL (8.8-10.2); CARBON DIOXIDE LEVEL 29 MEQ/L (21-32); CHLORIDE LEVEL 106 MEQ/L (98-107); CHOLESTEROL LEVEL 152 MG/DL (<200); CREATININE FOR GFR 0.83 MG/DL (0.55-1.30); GLOMERULAR FILTRATION RATE > 60.0 (>45); GLUCOSE, FASTING 118 MG/DL (70-100); HDL CHOLESTEROL 58 MG/DL (>40); LDL CHOLESTEROL 70 MG/DL (<100); NON-HDL-C 94 MG/DL; POTASSIUM SERUM 4.4 MEQ/L (3.5-5.1); SODIUM LEVEL 141 MEQ/L (136-145); TOTAL PROTEIN 6.8 GM/DL (6.4-8.2); TRIGLYCERIDES LEVEL 121 MG/DL (<150)
== END ==
LOC: M LRY 08:00
PROVIDERS: ATTEND Physician Assistant
DX: I10 Essential (primary) hypertension (principal); E78.5 Hyperlipidemia, unspecified; D64.9 Anemia, unspecified

== ENCOUNTER → 2020-08-23 | Outpatient (CLI) | payer BC ==
[~2020-08-23] MED LIST changes: -LISI-538 PO; +LISI20TA33 PO
--- NOTE | 2020-08-23 10:49 | REPMRS ---
Patient History The patient states she has not had a clinical breast exam in over a year. Patient is postmenopausal. No known family history of cancer. Benign stereotatic breast biopsy of the right breast, 2010. Took unspecified hormones for 6 years. 3D TOMOSYNTHESIS WAS PERFORMED. [facility] [place] breast density b. Digital Woman Screen Mammo: August 23, 2020 - Exam #: [id number] Bilateral CC and MLO view(s) were taken. Technologist: Nataliya Graham, Technologist Prior study comparison: August 20, 2019, bilateral digital woman screen mammo performed at [facility]. July 06, 2018, bilateral digital woman screen mammo performed at [facility]. FINDINGS: There are scattered fibroglandular densities. There has been no change in the appearance of the mammogram from the prior studies. There is a mild amount of residual fibroglandular tissue which is fairly symmetric. There is no interval development of dominant mass, architectural distortion, or clustered microcalcification suggestive of malignancy. Assessment: BI-RADS/ACR category 1 mammogram. Negative Mammogram. Recommendation Routine screening mammogram in 1 year (for women over age 40). This mammogram was interpreted with the aid of an FDA-approved computer-aided dectection system. Electronically Signed By: Mitch Valdes MD 08/23/20 [id number]
== END ==
LOC: M WHC 10:02
PROVIDERS: ATTEND Physician Assistant
DX: Z12.31 Encounter for screening mammogram for malignant neoplasm of breast (principal); Z86.018 Personal history of other benign neoplasm

== ENCOUNTER → 2021-02-24 | Outpatient (REF) | payer BC | LOC: M LAB REF 19:48 | PROVIDERS: ATTEND Nurse Practitioner Family | DX: N39.0 Urinary tract infection, site not specified (principal) ==

== ENCOUNTER → 2021-03-04 | Outpatient (REF) | payer BC | LOC: M LAB REF 17:43 | PROVIDERS: ATTEND Physician Assistant | DX: N39.0 Urinary tract infection, site not specified (principal) ==

== ENCOUNTER → 2021-10-16 | Outpatient (CLI) | payer BC | LOC: M WHC 12:54 | PROVIDERS: ATTEND Advanced Practice Midwife | DX: Z12.31 Encounter for screening mammogram for malignant neoplasm of breast (principal) ==

== ENCOUNTER → 2021-10-16 | Outpatient (CLI) | payer BC | LOC: M WHC 15:18 | PROVIDERS: ATTEND Advanced Practice Midwife | DX: Z12.31 Encounter for screening mammogram for malignant neoplasm of breast (principal) ==

== ENCOUNTER → 2021-10-25 | Outpatient (CLI) | payer BC, MEDICARE ==
[2021-10-25 14:55] LABS: BLOOD UREA NITROGEN 25 MG/DL (7-18); CREATININE FOR GFR 0.82 MG/DL (0.55-1.30); GLOMERULAR FILTRATION RATE > 60.0 (>45)
== END ==
LOC: M LAB 13:19
PROVIDERS: ATTEND Surgery Vascular Surgery
DX: I70.512 Atherosclerosis of nonautologous biological bypass graft(s) of the extremities with intermittent claudication, left leg (principal)

== ENCOUNTER → 2021-11-01 | Outpatient (CLI) | payer BC ==
[~2021-11-01] MED LIST changes: +ISOVUE-370 76% 100ML VIAL As Ordered ONE
== END ==
LOC: M RAD 08:38
PROVIDERS: ATTEND Surgery Vascular Surgery
DX: I70.512 Atherosclerosis of nonautologous biological bypass graft(s) of the extremities with intermittent claudication, left leg (principal); K76.89 Other specified diseases of liver
CPT/HCPCS: 75635; Q9967

== ENCOUNTER → 2022-08-12 | Outpatient (CLI) | payer BC ==
[~2022-08-12] MED LIST changes: -ISOVUE-370 76% 100ML VIAL As Ordered ONE
[2022-08-12 13:15] LABS: BASO % 0.4 % (0.0-1.0); EOS # 0.2 10^3/uL (0.0-0.5); HEMATOCRIT 38.7 % (36.0-47.0); LYMPH % 61.8 % (24.0-44.0); MEAN CORPUSCULAR HEMOGLOBIN 28.4 pg (27.0-33.0); MEAN CORPUSCULAR VOLUME 91.5 fl (80.0-96.0); MONO # 0.5 10^3/uL (0.0-0.8); MONO % 5.9 % (2.0-8.0); NEUTROPHILS # 2.4 10^3/uL (1.5-8.5); NEUTROPHILS % 29.7 % (36.0-66.0); PLATELET COUNT, AUTOMATED 401 10^3/uL (150-450); RED BLOOD COUNT 4.23 10^6/uL (4.00-5.40); WHITE BLOOD COUNT 8.1 10^3/uL (4.0-10.0)
[2022-08-12 13:34] LABS: THYROID STIMULATING HORMONE 1.095 uIU/ML (0.55-4.78)
[2022-08-12 13:35] LABS: ALKALINE PHOSPHATASE 48 U/L (46-116); ALT/SGPT 24 U/L (7.0-40); AST/SGOT 26 U/L (<34); BILIRUBIN,TOTAL 0.3 MG/DL (0.3-1.2); BLOOD UREA NITROGEN 21 MG/DL (9-23); CALCIUM LEVEL 9.3 MG/DL (8.3-10.6); CARBON DIOXIDE LEVEL 29 MMOL/L (20-31); CHLORIDE LEVEL 104 MMOL/L (98-107); CHOLESTEROL LEVEL 158 MG/DL (<200); CHOLESTEROL RISK RATIO 2.72 (<5); CREATININE FOR GFR 0.68 MG/DL (0.55-1.30); GLOMERULAR FILTRATION RATE > 60.0 (>45); GLUCOSE, FASTING 126 MG/DL (74-106); HDL CHOLESTEROL 57.9 MG/DL (>40); LDL CHOLESTEROL 66.1 MG/DL (<100); NON-HDL-C 100 MG/DL; POTASSIUM SERUM 4.3 MMOL/L (3.5-5.1); SODIUM LEVEL 142 MMOL/L (136-145); TOTAL PROTEIN 6.5 G/DL (5.7-8.2); TRIGLYCERIDES LEVEL 170 MG/DL (<150)
[2022-08-12 13:41] LABS: HEMOGLOBIN A1c 6.4 % (4.0-6.0)
== END ==
LOC: M WUC 08:08
PROVIDERS: ATTEND Physician Assistant
DX: E78.5 Hyperlipidemia, unspecified (principal); I10 Essential (primary) hypertension; E55.9 Vitamin D deficiency, unspecified; E11.9 Type 2 diabetes mellitus without complications

== ENCOUNTER → 2023-02-15 | Outpatient (REF) | payer BC | LOC: M WUC 18:30 | PROVIDERS: ATTEND Physician Assistant Medical | DX: R30.0 Dysuria (principal) ==

== ENCOUNTER → 2023-06-13 | Outpatient (REF) | payer BC ==
[2023-06-13 16:23] LABS: HEMOGLOBIN A1c 6.3 % (4.0-6.0)
== END ==
LOC: M LABWUC 15:13
PROVIDERS: ATTEND Physician Assistant
DX: E11.9 Type 2 diabetes mellitus without complications (principal)

== ENCOUNTER → 2023-06-24 | Outpatient (REF) | payer BC | LOC: M SFHCWAGY 12:58 | PROVIDERS: ATTEND Nurse Practitioner Family | DX: R10.2 Pelvic and perineal pain (principal) ==

== ENCOUNTER → 2023-10-27 | Outpatient (CLI) | payer BC ==
[2023-10-27 08:11] LABS: HEMATOCRIT 38.6 % (36.0-47.0); HEMOGLOBIN 12.5 g/dl (12.0-15.5); MEAN CORPUSCULAR HEMOGLOBIN 28.8 pg (27.0-33.0); MEAN CORPUSCULAR HGB CONC 32.4 g/dl (32.0-36.5); MEAN CORPUSCULAR VOLUME 88.9 fl (80.0-96.0); PLATELET COUNT, AUTOMATED 314 10^3/uL (150-450); RED BLOOD COUNT 4.34 10^6/uL (4.00-5.40); WHITE BLOOD COUNT 7.8 10^3/uL (4.0-10.0)
[2023-10-27 08:43] LABS: ALBUMIN 3.4 G/DL (3.2-5.2); ALKALINE PHOSPHATASE 76 U/L (46-116); ALT/SGPT 33 U/L (7.0-40); AST/SGOT 23 U/L (<34); BILIRUBIN,TOTAL 0.3 MG/DL (0.3-1.2); BLOOD UREA NITROGEN 18 MG/DL (9-23); CALCIUM LEVEL 9.2 MG/DL (8.3-10.6); CARBON DIOXIDE LEVEL 32 MMOL/L (20-31); CHLORIDE LEVEL 102 MMOL/L (98-107); CHOLESTEROL LEVEL 162 MG/DL (<200); CHOLESTEROL RISK RATIO 3.46 (<5); CREATININE FOR GFR 0.53 MG/DL (0.55-1.30); GLOMERULAR FILTRATION RATE > 60.0 (>45); GLUCOSE, FASTING 139 MG/DL (74-106); HDL CHOLESTEROL 46.7 MG/DL (>40); NON-HDL-C 115.3 MG/DL; SODIUM LEVEL 139 MMOL/L (136-145); TOTAL PROTEIN 6.2 G/DL (5.7-8.2); TRIGLYCERIDES LEVEL 445 MG/DL (<150)
== END ==
LOC: M LAB 07:15
PROVIDERS: ATTEND Physician Assistant
DX: I10 Essential (primary) hypertension (principal); E78.5 Hyperlipidemia, unspecified; E11.9 Type 2 diabetes mellitus without complications

== ENCOUNTER → 2023-11-24 | Outpatient (CLI) | payer BC ==
[2023-11-24 12:12] LABS: BASO % 0.1 % (0.0-1.0); EOS # 0.2 10^3/uL (0.0-0.5); EOS % 2.3 % (0.0-3.0); HEMATOCRIT 31.7 % (36.0-47.0); HEMOGLOBIN 9.9 g/dl (12.0-15.5); LYMPH # 2.9 10^3/uL (1.5-5.0); LYMPH % 31.4 % (24.0-44.0); MEAN CORPUSCULAR HEMOGLOBIN 28.9 pg (27.0-33.0); MEAN CORPUSCULAR HGB CONC 31.2 g/dl (32.0-36.5); MEAN CORPUSCULAR VOLUME 92.7 fl (80.0-96.0); MONO # 0.5 10^3/uL (0.0-0.8); MONO % 5.9 % (2.0-8.0); NEUTROPHILS # 5.5 10^3/uL (1.5-8.5); PLATELET COUNT, AUTOMATED 370 10^3/uL (150-450); RED BLOOD COUNT 3.42 10^6/uL (4.00-5.40)
[2023-11-25 11:41] LABS: WHITE BLOOD COUNT 9.2 10^3/uL (4.0-10.0)
== END ==
LOC: M WUC 08:17
PROVIDERS: ATTEND Physician Assistant
DX: K29.61 Other gastritis with bleeding (principal)

== ENCOUNTER → 2024-02-07 | Outpatient (REF) | payer BC | LOC: M LAB REF 19:10 | PROVIDERS: ATTEND Physician Assistant | DX: R30.0 Dysuria (principal) ==

== ENCOUNTER → 2024-03-25 | Outpatient (CLI) | payer BC ==
[2024-03-25 12:56] LABS: HEMATOCRIT 41.7 % (36.0-47.0); HEMOGLOBIN 13.3 g/dl (12.0-15.5); MEAN CORPUSCULAR HEMOGLOBIN 27.5 pg (27.0-33.0); MEAN CORPUSCULAR HGB CONC 31.9 g/dl (32.0-36.5); MEAN CORPUSCULAR VOLUME 86.3 fl (80.0-96.0); PLATELET COUNT, AUTOMATED 340 10^3/uL (150-450); RED BLOOD COUNT 4.83 10^6/uL (4.00-5.40); WHITE BLOOD COUNT 6.6 10^3/uL (4.0-10.0)
[2024-03-25 13:13] LABS: HEMOGLOBIN A1c 5.9 % (4.0-6.0)
[2024-03-25 13:25] LABS: ALKALINE PHOSPHATASE 66 U/L (46-116); ALT/SGPT 60 U/L (7.0-40); AST/SGOT 54 U/L (<34); BILIRUBIN,TOTAL 0.6 MG/DL (0.3-1.2); BLOOD UREA NITROGEN 16 MG/DL (9-23); CALCIUM LEVEL 9.8 MG/DL (8.3-10.6); CARBON DIOXIDE LEVEL 31 MMOL/L (20-31); CHLORIDE LEVEL 101 MMOL/L (98-107); CHOLESTEROL LEVEL 125 MG/DL (<200); CHOLESTEROL RISK RATIO 2.48 (<5); CREATININE FOR GFR 0.68 MG/DL (0.55-1.30); GLOMERULAR FILTRATION RATE > 60.0 (>45); GLUCOSE, FASTING 88 MG/DL (74-106); HDL CHOLESTEROL 50.3 MG/DL (>40); LDL CHOLESTEROL 35.5 MG/DL (<100); NON-HDL-C 74.7 MG/DL; POTASSIUM SERUM 4.1 MMOL/L (3.5-5.1); SODIUM LEVEL 137 MMOL/L (136-145); TOTAL PROTEIN 6.5 G/DL (5.7-8.2); TRIGLYCERIDES LEVEL 196 MG/DL (<150)
== END ==
LOC: M LRY 08:30
PROVIDERS: ATTEND Physician Assistant
DX: E11.9 Type 2 diabetes mellitus without complications (principal); E78.5 Hyperlipidemia, unspecified; I10 Essential (primary) hypertension; D64.9 Anemia, unspecified

== ENCOUNTER → 2024-11-10 | Outpatient (CLI) | payer MEDICARE ==
[2024-11-10 08:01] LABS: HEMATOCRIT 37.7 % (36.0-47.0); MEAN CORPUSCULAR HEMOGLOBIN 27.6 pg (27.0-33.0); MEAN CORPUSCULAR HGB CONC 31.8 g/dl (32.0-36.5); MEAN CORPUSCULAR VOLUME 86.9 fl (80.0-96.0); PLATELET COUNT, AUTOMATED 361 10^3/uL (150-450); RED BLOOD COUNT 4.34 10^6/uL (4.00-5.40); WHITE BLOOD COUNT 7.5 10^3/uL (4.0-10.0)
[2024-11-10 08:30] LABS: ALBUMIN 3.8 G/DL (3.2-5.2); ALKALINE PHOSPHATASE 53 U/L (35-104); ALT/SGPT 28 U/L (7.0-40); AST/SGOT 24 U/L (<34); BILIRUBIN,TOTAL 0.3 MG/DL (0.3-1.2); BLOOD UREA NITROGEN 24 MG/DL (9-23); CALCIUM LEVEL 9.5 MG/DL (8.3-10.6); CARBON DIOXIDE LEVEL 30 MMOL/L (20-31); CHLORIDE LEVEL 105 MMOL/L (98-107); CHOLESTEROL LEVEL 138 MG/DL (<200); CHOLESTEROL RISK RATIO 2.61 (<5); CREATININE FOR GFR 0.79 MG/DL (0.55-1.30); GLOMERULAR FILTRATION RATE > 60.0 (>45); GLUCOSE, FASTING 116 MG/DL (74-106); HDL CHOLESTEROL 52.8 MG/DL (>40); NON-HDL-C 85.2 MG/DL; SODIUM LEVEL 143 MMOL/L (136-145); TOTAL PROTEIN 6.5 G/DL (5.7-8.2); TRIGLYCERIDES LEVEL 176 MG/DL (<150)
[2024-11-10 08:31] LABS: THYROID STIMULATING HORMONE 1.514 uIU/ML (0.55-4.78)
[2024-11-10 08:40] LABS: HEMOGLOBIN A1c 6.2 % (4.0-6.0)
== END ==
LOC: M LAB 07:26
PROVIDERS: ATTEND Physician Assistant
DX: E11.9 Type 2 diabetes mellitus without complications (principal); E78.5 Hyperlipidemia, unspecified; I10 Essential (primary) hypertension

== ENCOUNTER → 2025-02-13 | Outpatient (REF) | payer MEDICARE | LOC: M LAB REF 18:32 | PROVIDERS: ATTEND Registered Nurse | DX: N39.0 Urinary tract infection, site not specified (principal) ==

== ENCOUNTER → 2025-02-18 | Outpatient (CLI) | payer MEDICARE | LOC: M SOG 06:51 | PROVIDERS: ATTEND Physician Assistant | DX: M19.071 Primary osteoarthritis, right ankle and foot (principal); M21.6X1 Other acquired deformities of right foot ==